=== PATIENT | female | born 1985 | race Caucasian/White ===

== ENCOUNTER → 2021-05-25 | Outpatient (CLI) | payer BC ==
[2021-05-25 12:28] LABS: Follicle Stimulating Hormone 5.96 IU/L (SEE BELOW); Leuteinizing Hormone 8.2 IU/L
== END | disposition home or self-care (01) ==
LOC: LAB 11:20
PROVIDERS: ATTEND Student in an Organized Health Care Education/Training Program
DX: R73.9 Hyperglycemia, unspecified (principal); E28.2 Polycystic ovarian syndrome
CPT/HCPCS: 36415; 83001; 83002; 83036; 84403; 84443

== ENCOUNTER → 2022-07-18 | Outpatient (CLI) | payer BC ==
[2022-07-18 08:07] LABS: Basophils # (auto) 0 10 ^3/uL (0-0.2); Basophils % (auto) 0.6 % (0.0-2.0); Eosinophils # (auto) 0.1 10 ^3/uL (0-0.8); Eosinophils % (auto) 2.4 % (0.0-7.0); Hematocrit 43.8 % (36.0-46.0); Lymphocytes # (auto) 1.8 10 ^3/uL (0.4-5.4); Lymphocytes % (auto) 29.5 % (10.0-50.0); Mean Corpuscular Hgb Conc. 34.4 g/dL (32.0-36.0); Mean Corpuscular Volume 87.4 fL (80.0-100.0); Monocytes # (auto) 0.5 10 ^3/uL (0-1.3); Monocytes % (auto) 8.2 % (0.0-12.0); Neutrophils # (auto) 3.6 10 ^3/uL (1.6-8.6); Neutrophils % (auto) 59.3 % (37.0-80.0); Nucleated Red Blood Cells % 0.3 %; Red Blood Cells 5.01 10^6/uL (4.0-5.20); Red Cell Distribution Width 13.7 % (11.8-14.3)
[2022-07-18 08:27] LABS: Cholesterol 133 mg/dL (< 200)
[2022-07-18 08:29] LABS: HDL Cholesterol 54 mg/dL (40-59); LDL Cholesterol 79 mg/dL (< 100); Triglycerides 69 mg/dL (< 150)
[2022-07-18 08:44] LABS: T3 Total 1.36 ng/mL (0.60-1.81)
== END | disposition home or self-care (01) ==
LOC: LAB 07:38
PROVIDERS: ATTEND Internal Medicine Endocrinology, Diabetes & Metabolism
DX: R79.89 Other specified abnormal findings of blood chemistry (principal); E03.9 Hypothyroidism, unspecified; E55.9 Vitamin D deficiency, unspecified
CPT/HCPCS: 36415; 80061; 82024; 82306; 82533; 82626; 82670; 84144; 84403; 84436; 84443; 84480; 85025; 86376; 86644; 86645; 86664

== ENCOUNTER → 2022-08-09 | Outpatient (CLI) | payer BC ==
[2022-08-09 12:54] LABS: Follicle Stimulating Hormone 7.22 IU/L (SEE BELOW); Leuteinizing Hormone 6.4 IU/L
== END | disposition home or self-care (01) ==
LOC: LAB 11:50
PROVIDERS: ATTEND Internal Medicine Endocrinology, Diabetes & Metabolism
DX: E28.1 Androgen excess (principal)
CPT/HCPCS: 82626; 83001; 83002; 84402; 84403

== ENCOUNTER → 2022-09-16 | Outpatient (CLI) | payer BC ==
[2022-09-16 08:06] LABS: BUN/Creatinine Ratio 8.9 (10.0-20.0); Calcium 8.8 mg/dL (8.5-10.1); Potassium 3.9 mmol/L (3.5-5.1)
== END | disposition home or self-care (01) ==
LOC: LAB 07:13
PROVIDERS: ATTEND Nurse Practitioner Family
DX: R79.89 Other specified abnormal findings of blood chemistry (principal)
CPT/HCPCS: 36415; 80048

== ENCOUNTER → 2022-10-02 | Outpatient (CLI) | payer BC ==
[2022-10-02 11:55] LABS: Basophils # (auto) 0 10 ^3/uL (0-0.2); Basophils % (auto) 0.4 % (0.0-2.0); Eosinophils # (auto) 0.3 10 ^3/uL (0-0.8); Eosinophils % (auto) 3.5 % (0.0-7.0); Hematocrit 42.3 % (36.0-46.0); Hemoglobin 14.7 g/dL (12.2-16.2); Lymphocytes # (auto) 2.2 10 ^3/uL (0.4-5.4); Lymphocytes % (auto) 26.5 % (10.0-50.0); Mean Corpuscular Hgb Conc. 34.6 g/dL (32.0-36.0); Mean Corpuscular Volume 86.7 fL (80.0-100.0); Monocytes # (auto) 0.6 10 ^3/uL (0-1.3); Monocytes % (auto) 6.8 % (0.0-12.0); Neutrophils # (auto) 5.3 10 ^3/uL (1.6-8.6); Neutrophils % (auto) 62.8 % (37.0-80.0); Red Blood Cells 4.88 10^6/uL (4.0-5.20); White Blood Cell 8.4 10^3/uL (4.4-10.8)
[2022-10-02 12:14] LABS: Albumin 3.9 g/dL (3.4-5.0); Calcium 9.6 mg/dL (8.5-10.1); Potassium 3.8 mmol/L (3.5-5.1)
[2022-10-02 12:18] LABS: Bilirubin, Total 0.5 mg/dL (0.2-1.0); Total Protein 7.7 g/dL (6.4-8.2)
[2022-10-02 13:08] LABS: BUN/Creatinine Ratio 10.5 (10.0-20.0)
== END | disposition home or self-care (01) ==
LOC: LAB 11:38
PROVIDERS: ATTEND Internal Medicine Endocrinology, Diabetes & Metabolism
DX: E28.1 Androgen excess (principal)
CPT/HCPCS: 36415; 80053; 82626; 82670; 84403; 85025

== ENCOUNTER → 2022-12-31 | Outpatient (CLI) | payer BC ==
[2022-12-31 07:27] LABS: Basophils # (auto) 0 10 ^3/uL (0-0.2); Basophils % (auto) 0.4 % (0.0-2.0); Eosinophils # (auto) 0.2 10 ^3/uL (0-0.8); Eosinophils % (auto) 3.2 % (0.0-7.0); Hematocrit 40.8 % (36.0-46.0); Hemoglobin 14.2 g/dL (12.2-16.2); Lymphocytes % (auto) 26.9 % (10.0-50.0); Mean Corpuscular Hemoglobin 30.5 pg (28.0-32.0); Mean Corpuscular Hgb Conc. 34.7 g/dL (32.0-36.0); Mean Corpuscular Volume 87.8 fL (80.0-100.0); Monocytes # (auto) 0.6 10 ^3/uL (0-1.3); Monocytes % (auto) 8.5 % (0.0-12.0); Neutrophils # (auto) 4.5 10 ^3/uL (1.6-8.6); Red Blood Cells 4.65 10^6/uL (4.0-5.20); White Blood Cell 7.4 10^3/uL (4.4-10.8)
[2022-12-31 08:30] LABS: Albumin 3.7 g/dL (3.4-5.0); Calcium 9.1 mg/dL (8.5-10.1); Potassium 3.9 mmol/L (3.5-5.1)
[2022-12-31 08:35] LABS: BUN/Creatinine Ratio 15.3 (10.0-20.0); Bilirubin, Total 0.4 mg/dL (0.2-1.0); Total Protein 7.3 g/dL (6.4-8.2)
== END | disposition home or self-care (01) ==
LOC: LAB 07:08
PROVIDERS: ATTEND Internal Medicine Endocrinology, Diabetes & Metabolism
DX: L68.0 Hirsutism (principal)
CPT/HCPCS: 36415; 80053; 80061; 82626; 82670; 84403; 85025

== ENCOUNTER 2024-01-28 06:06 | Inpatient (IN) | payer BC, MEDICAID ==
[2024-01-26 08:04] LABS: Urine Bacteria None Seen /hpf (None Seen)
[2024-01-26 08:07] LABS: Basophils # (auto) 0 10 ^3/uL (0-0.2); Basophils % (auto) 0.4 % (0.0-2.0); Eosinophils # (auto) 0.2 10 ^3/uL (0-0.8); Eosinophils % (auto) 1.8 % (0.0-7.0); Hematocrit 41.6 % (36.0-46.0); Hemoglobin 14.3 g/dL (12.2-16.2); Lymphocytes # (auto) 2.2 10 ^3/uL (0.4-5.4); Lymphocytes % (auto) 24.1 % (10.0-50.0); Mean Corpuscular Hemoglobin 30.8 pg (28.0-32.0); Mean Corpuscular Hgb Conc. 34.5 g/dL (32.0-36.0); Mean Corpuscular Volume 89.4 fL (80.0-100.0); Monocytes # (auto) 0.5 10 ^3/uL (0-1.3); Monocytes % (auto) 5.8 % (0.0-12.0); Neutrophils # (auto) 6.2 10 ^3/uL (1.6-8.6); Neutrophils % (auto) 67.9 % (37.0-80.0); Nucleated Red Blood Cells % 0.1 %; Platelet Count (auto) 309 10^3/uL (140-450); Red Blood Cells 4.65 10^6/uL (4.0-5.20); Red Cell Distribution Width 12.8 % (11.8-14.3); White Blood Cell 9.2 10^3/uL (4.4-10.8)
[2024-01-26 08:10] LABS: Urine Blood Negative /uL (Negative); Urine Clarity Clear (Clear); Urine Color Yellow (Yellow); Urine Protein, UAD TRACE (Negative); Urine Specific Gravity 1.026 (1.001-1.035); Urine Urobilinogen Normal (Negative); Urine WBC 5 /hpf (0 - 5)
[2024-01-26 08:28] LABS: INR 1.03 (0.9-1.15); Partial Thromboplastin Time 27.3 SEC (24.5-34.5); Prothrombin Time 10.9 sec (9.3-11.8)
[2024-01-26 09:20] LABS: Alanine Aminotransferase 18 U/L (7-40); Albumin 4.3 g/dL (3.2-4.8); Alkaline Phosphatase 76 U/L (46-116); Anion Gap 0 (5-15); Aspartate Aminotransferase 12 U/L (13-40); Blood Urea Nitrogen 8 mg/dL (9-23); Calcium 9.6 mg/dL (8.7-10.4); Carbon Dioxide 31 mmol/L (20-30); Chloride 108 mmol/L (98-107); Glucose 80 mg/dL (74-106); Potassium 4.1 mmol/L (3.5-5.1); Sodium 139 mmol/L (136-145)
[2024-01-26 09:21] LABS: Bilirubin, Total 0.7 mg/dL (0.2-1.0); Total Protein 6.8 g/dL (5.7-8.2)
[2024-01-28] VITALS (7 sets, daily range): BP systolic 99–113; BP diastolic 50–63; PULSE 65–98; RESP 16–65; TEMP 97.9–98.1; O2SAT 95–100
[~2024-01-28] VITALS: Ht 170.2 cm; Wt 99.0 kg
[2024-01-28] MEDS: ceFAZolin 2 GM/D5W50ml 50 ML IV ONE (06:38)
[2024-01-28] MEDS ORDERED: MEPERIDINE HCL (50 MG/ML) 1 ML VIAL ONE (06:45)
[2024-01-28] MEDS ORDERED: fentaNYL CITRATE 100 MCG/2 ML VL ONE (06:45)
[2024-01-28] MEDS ORDERED: LIDOCAINE HCL 2% TOP JELLY 5ML TOP ONE (06:45)
[2024-01-28] MEDS ORDERED: GLYCOPYRROLATE 0.2 MG/ML 1ML VIAL ONE (06:45)
[2024-01-28] MEDS ORDERED: ROCURONIUM 10MG/ML 10ML VIAL IV ONE (06:45)
[2024-01-28] MEDS ORDERED: KETAMINE 50mg/ML 1ml syringe ONE (06:45)
[2024-01-28] MEDS ORDERED: ONDANSETRON HCL 4 MG/2 ML VIAL ONE (06:45)
[2024-01-28] MEDS ORDERED: DexAMETHasone SOD PHOS 10MG/1ML VIAL INJ ONE (06:45)
[2024-01-28] MEDS ORDERED: MIDAZOLAM HCL 2MG/2ML 2ml VIAL (1mg/ml) ONE (06:45)
[2024-01-28] MEDS ORDERED: LIDOCAINE 1% INJ PF 5ML AMP ONE (06:45)
[2024-01-28] MEDS ORDERED: NEOSTIGMINE 1 MG/ML INJ (10mg/10ML VIAL) ONE (06:45)
[2024-01-28] MEDS ORDERED: SODIUM CHLORIDE LOCK 10 ML ONE (06:45)
[2024-01-28] MEDS ORDERED: PROPOFOL 10 MG/ML 20 ML IV ONE (06:45)
[2024-01-28] MEDS: LIDOCAINE 2% JELLY 11ml (GLYDO) ONE (06:46)
[2024-01-28] MEDS ORDERED: fentaNYL CITRATE 100 MCG/2 ML VL IV PRN (07:15)
[2024-01-28] MEDS ORDERED: MORPHINE SULFATE INJ 2 MG/ml SYRG IV PRN ×2 (07:15→19:00)
[2024-01-28] MEDS ORDERED: HYDROmorphone HCL 2 MG/ML VL/or syr IV PRN ×2 (07:15)
[2024-01-28] MEDS ORDERED: METOCLOPRAMIDE HCL 5MG/ml INJ 2ml VIAL IV ONE (07:15)
[2024-01-28] MEDS: BUPIVACAINE HCL 0.25% P/F 10 ML VIAL ONE (08:10)
[2024-01-28] MEDS: LIDOCAINE W/ EPINEPHRINE 1% 20ML VIAL ONE (08:10)
[2024-01-28] MEDS ORDERED: ONDANSETRON HCL 4 MG/2 ML VIAL IV PRN (08:15)
[2024-01-28] MEDS: D5W/SOD CHL 0.45%/KCL 20MEQ 1,000 ML IV SCH (10:00)
[2024-01-28] MEDS: KETOROLAC TROMETH 30 MG/ML 1ML VIAL IV ONE ×2 (10:02)
[2024-01-28] MEDS ORDERED: HYDROmorphone HCL 2 MG/ML VL/or syr ONE (11:16)
[2024-01-28] MEDS: HYDROmorphone HCL 2 MG/ML VL/or syr IV ONE (12:16)
[2024-01-28] MEDS ORDERED: SUCCINYLCHOLINE CHLORIDE 20 MG/ML 10ML VIAL IV ONE (12:32)
[2024-01-28] MEDS: ceFAZolin 1GM/50ML 50 ML IV SCH (14:12)
[2024-01-28] MEDS: ACETAMINOPHEN/CODEINE#3 (300/30mg) TAB PO PRN (15:49)
[2024-01-28] MEDS ORDERED: MORPHINE SULFATE INJ 2 MG/ml SYRG IV ONE (19:00)
[2024-01-28] MEDS: HYDROmorphone HCL 2 MG/ML VL/or syr IV PRN (19:01)
[2024-01-29] VITALS (8 sets, daily range): BP systolic 92–117; BP diastolic 52–61; PULSE 68–87; RESP 17–20; TEMP 97.5–98.6; O2SAT 92–100
[2024-01-29 06:08] LABS: Basophils # (auto) 0 10 ^3/uL (0-0.2); Basophils % (auto) 0.1 % (0.0-2.0); Eosinophils # (auto) 0 10 ^3/uL (0-0.8); Eosinophils % (auto) 0.3 % (0.0-7.0); Hematocrit 38.3 % (36.0-46.0); Hemoglobin 13.4 g/dL (12.2-16.2); Lymphocytes # (auto) 2.7 10 ^3/uL (0.4-5.4); Lymphocytes % (auto) 19.5 % (10.0-50.0); Mean Corpuscular Hemoglobin 31.4 pg (28.0-32.0); Mean Corpuscular Volume 89.6 fL (80.0-100.0); Monocytes % (auto) 7.3 % (0.0-12.0); Neutrophils # (auto) 10.2 10 ^3/uL (1.6-8.6); Neutrophils % (auto) 72.8 % (37.0-80.0); Platelet Count (auto) 283 10^3/uL (140-450); Red Blood Cells 4.27 10^6/uL (4.0-5.20); Red Cell Distribution Width 13.1 % (11.8-14.3)
[2024-01-29 06:09] LABS: Alanine Aminotransferase 31 U/L (7-40); Albumin 3.6 g/dL (3.2-4.8); Alkaline Phosphatase 65 U/L (46-116); Anion Gap 5 (5-15); Aspartate Aminotransferase 21 U/L (13-40); Bilirubin, Total 0.6 mg/dL (0.2-1.0); Carbon Dioxide 26 mmol/L (20-30); Chloride 109 mmol/L (98-107); Glucose 107 mg/dL (74-106); Potassium 3.8 mmol/L (3.5-5.1); Sodium 140 mmol/L (136-145)
[2024-01-29 06:10] LABS: Total Protein 6.1 g/dL (5.7-8.2)
[2024-01-29 06:16] LABS: BUN/Creatinine Ratio 7.5 (10.0-20.0); Blood Urea Nitrogen < 5 mg/dL (9-23)
[2024-01-29] MEDS: PANTOPRAZOLE 40 MG/10 ML VIAL INJ IV SCH (09:00)
[2024-01-29] MEDS ORDERED: CEPH500T PO (10:16)
[2024-01-29] MEDS ORDERED: DOCU-94 PO (10:16)
[2024-01-29] MEDS ORDERED: TRAM-626 PO (10:16)
[2024-01-30 01:00] VITALS: BP 115/59; PULSE 76; RESP 16; TEMP 98.5; O2SAT 97
[2024-01-30 05:00] VITALS: BP 106/63; PULSE 74; RESP 18; TEMP 98.6; O2SAT 96
[2024-01-30 08:00] VITALS: PULSE 84; RESP 17; O2SAT 94
[2024-01-30 08:49] VITALS: BP 129/79; PULSE 84; RESP 17; TEMP 98.1; O2SAT 94
[2024-01-30 11:31] VITALS: BP 129/79; PULSE 84; RESP 17; TEMP 98.1; O2SAT 94
== END 2024-01-30 12:30 | disposition home or self-care (01) | DRG 419 ==
LOC: SUR 06:06 → OVERFLOW 12:04 → EEVIPCON 12:04 → EAST 15:46
PROVIDERS: ADMIT Surgery; ATTEND Internal Medicine Geriatric Medicine
PROC: 0FT44ZZ Resection of Gallbladder, Percutaneous Endoscopic Approach (ICD-10-PCS; principal; 2024-01-28 07:17)
DX: K80.10 Calculus of gallbladder with chronic cholecystitis without obstruction (principal); K59.00 Constipation, unspecified; E66.9 Obesity, unspecified; Z68.34 Body mass index [BMI] 34.0-34.9, adult
CPT/HCPCS: 36415; 80053; 81001; 84702; 85025; 85610; 85730; 86850; 86900; 86901; G0378; J0330; J1100; J1885; J2250; J2405; J2470; J2704; J3490

== ENCOUNTER → 2024-02-24 | Outpatient (CLI) | payer BC, MEDICAID ==
[~2024-02-24] MED LIST: CEPH500T PO; DOCU-94 PO; TRAM-626 PO
[2024-02-24 08:21] LABS: Basophils # (auto) 0 10 ^3/uL (0-0.2); Basophils % (auto) 0.5 % (0.0-2.0); Eosinophils # (auto) 0.2 10 ^3/uL (0-0.8); Eosinophils % (auto) 3.2 % (0.0-7.0); Hematocrit 42.3 % (36.0-46.0); Hemoglobin 14.7 g/dL (12.2-16.2); Lymphocytes % (auto) 26.9 % (10.0-50.0); Mean Corpuscular Hemoglobin 31.2 pg (28.0-32.0); Mean Corpuscular Hgb Conc. 34.8 g/dL (32.0-36.0); Mean Corpuscular Volume 89.8 fL (80.0-100.0); Monocytes # (auto) 0.5 10 ^3/uL (0-1.3); Monocytes % (auto) 6.3 % (0.0-12.0); Neutrophils # (auto) 4.6 10 ^3/uL (1.6-8.6); Neutrophils % (auto) 63.1 % (37.0-80.0); Platelet Count (auto) 282 10^3/uL (140-450); Red Blood Cells 4.71 10^6/uL (4.0-5.20); Red Cell Distribution Width 13.4 % (11.8-14.3); White Blood Cell 7.3 10^3/uL (4.4-10.8)
[2024-02-24 09:31] LABS: Alanine Aminotransferase 17 U/L (7-40); Albumin 4.7 g/dL (3.2-4.8); Alkaline Phosphatase 73 U/L (46-116); Anion Gap 7 (5-15); Aspartate Aminotransferase 9 U/L (13-40); BUN/Creatinine Ratio 8.9 (10.0-20.0); Bilirubin, Total 0.7 mg/dL (0.2-1.0); Blood Urea Nitrogen 8 mg/dL (9-23); Calcium 9.7 mg/dL (8.7-10.4); Carbon Dioxide 26 mmol/L (20-30); Chloride 107 mmol/L (98-107); Glucose 84 mg/dL (74-106); Potassium 3.9 mmol/L (3.5-5.1); Sodium 140 mmol/L (136-145); Total Protein 7.3 g/dL (5.7-8.2)
== END | disposition home or self-care (01) ==
LOC: LAB 07:51
PROVIDERS: ATTEND Nurse Practitioner Family
DX: E66.9 Obesity, unspecified (principal); R53.82 Chronic fatigue, unspecified; E03.9 Hypothyroidism, unspecified
CPT/HCPCS: 36415; 80053; 82306; 84443; 85025

== ENCOUNTER → 2024-06-21 | Outpatient (CLI) | payer MEDICAID | END | disposition home or self-care (01) | LOC: LAB 06:38 | PROVIDERS: ATTEND Nurse Practitioner Family | DX: N39.0 Urinary tract infection, site not specified (principal) | CPT/HCPCS: 87086 ==